=== PATIENT | male | born 1965 | race Caucasian/White ===

== ENCOUNTER 2020-01-30 09:05 | Emergency (ER) | payer BC, OTHER ==
--- NOTE | 2020-01-30 09:59 | EDM.PDOC ---
ED HPI GENERAL MEDICAL PROBLEM - General Chief Complaint: Lower Extremity Injury/Pain Stated Complaint: LEFT FOOT INJURY/ COVID + Time Seen by Provider: 01/30/20 09:19 Source of Information: Reports: Patient History Limitations: Reports: No Limitations - History of Present Illness INITIAL COMMENTS - FREE TEXT/NARRATIVE: The patient presents with left foot pain and swelling. This started yesterday. The patient is COVID 19 positive and found out on . He denies any injury and he actually has been off of work since he got tested. He works at the [employer]. He has swelling and pain to the mid foot. He has no history of gout. This has never happened to him before. He has no fever or chills. He does have a slight cough. He has no chest pain, shortness of breath, abdominal pain, nausea, vomiting or diarrhea. Onset: Gradual Duration: Day(s): Location: Reports: Lower Extremity, Left (foot) Quality: Reports: Sharp Severity: Moderate Improves with: Reports: Immobilization Worsens with: Reports: Movement Context: Denies: Trauma Associated Symptoms: Reports: No Other Symptoms Left Foot Pain Score (Numeric/FACES): 6 - Related Data Allergies Allergy/AdvReac Type Severity Reaction Status Date / Time unknown Allergy Other Uncoded 03/12/15 12:47 Home Meds: Home Meds Hydrocodone/Acetaminophen [Hydrocodone-Acetamin 5-325 mg] 1 - 2 each PO Q6HR PRN #10 tablet 01/30/20 [Rx] predniSONE [Prednisone] 40 mg PO DAILY #10 tablet 01/30/20 [Rx] Past Medical History - Past Health History Medical/Surgical History: Denies Medical/Surgical History Other HEENT History: wears eyeglasses Musculoskeletal History: Reports: Fracture - Infectious Disease History Infectious Disease History: Reports: Novel Coronavirus - Past Surgical History GI Surgical History: Reports: Appendectomy Musculoskeletal Surgical History: Reports: Other (See Below) Other Musculoskeletal Surgeries/Procedures:: left hand surgery Social & Family History - Tobacco Use Smoking Status *Q: Current Some Day Smoker Years of Tobacco use: 40 Packs/Tins Daily: 0 - Caffeine Use Caffeine Use: Reports: Tea - Recreational Drug Use Recreational Drug Use: No Review of Systems - Review of Systems Review Of Systems: See Below Constitutional: Reports: No Symptoms Eyes: Reports: No Symptoms Ears: Reports: No Symptoms Nose: Reports: No Symptoms Mouth/Throat: Reports: No Symptoms Respiratory: Reports: No Symptoms Cardiovascular: Reports: No Symptoms GI/Abdominal: Reports: No Symptoms Genitourinary: Reports: No Symptoms Musculoskeletal: Reports: Other (Left foot swelling and pain) ED EXAM, GENERAL - Physical Exam Exam: See Below Exam Limited By: No Limitations General Appearance: Alert, No Apparent Distress Ears: Normal External Exam Nose: Normal Inspection Head: Atraumatic, Normocephalic Neck: Normal Inspection Respiratory/Chest: No Respiratory Distress, Lungs Clear, Normal Breath Sounds Cardiovascular: Regular Rate, Rhythm, No Edema, No Murmur GI/Abdominal: Soft, Non-Tender, No Organomegaly, No Mass Extremities: Other (Mild edema to the mid foot with pain upon palpation. Good sensation and pulses and capillary refill distally.) Course - Vital Signs Last Recorded V/S: Last Vital Signs Temp 97.0 F 01/30/20 09:15 Pulse 88 01/30/20 12:39 Resp 18 01/30/20 09:15 BP 128/83 01/30/20 12:39 Pulse Ox 98 01/30/20 12:39 - Orders/Labs/Meds Orders: Active Orders 24 hr Category Date Time Status Foot wo Cont Lt [CT] Stat Exams 01/30/20 11:00 Taken Labs: Laboratory Tests 01/30/20 01/30/20 01/30/20 Range/Units 09:46 09:46 09:46 WBC 11.21 H (4.23-9.07) K/mm3 RBC 4.59 L (4.63-6.08) M/mm3 Hgb 13.2 L (13.7-17.5) gm/dl Hct 40.2 (40.1-51.0) % MCV 87.6 (79.0-92.2) fl MCH 28.8 (25.7-32.2) pg MCHC 32.8 (32.2-35.5) g/dl RDW Std Deviation 41.4 (35.1-43.9) fL Plt Count 465 H (163-337) K/mm3 MPV 8.4 L (9.4-12.3) fl Neut % (Auto) 71.5 H (34.0-67.9) % Lymph % (Auto) 17.7 L (21.8-53.1) % Dale % (Auto) 9.1 (5.3-12.2) % Eos % (Auto) 1.1 (0.8-7.0) Baso % (Auto) 0.2 (0.1-1.2) % Neut # (Auto) 8.02 H (1.78-5.38) K/mm3 Lymph # (Auto) 1.98 (1.32-3.57) K/mm3 Dale # (Auto) 1.02 H (0.30-0.82) K/mm3 Eos # (Auto) 0.12 (0.04-0.54) K/mm3 Baso # (Auto) 0.02 (0.01-0.08) K/mm3 Manual Slide Review Abnormal smear ESR 81 H (0-15) mm/hr D-Dimer, Quantitative (0.19-0.50) mg/L Sodium 137 (136-145) mEq/L Potassium 3.8 (3.5-5.1) mEq/L Chloride 100 (98-107) mEq/L Carbon Dioxide 28 (21-32) mEq/L Anion Gap 12.8 (5-15) BUN 13 (7-18) mg/dL Creatinine 1.5 H (0.7-1.3) mg/dL Est Cr Clr Drug Dosing 57.61 mL/min Estimated GFR (MDRD) 49 (>60) mL/min BUN/Creatinine Ratio 8.7 L (14-18) Glucose 116 H (74-106) mg/dL Uric Acid 7.8 H (3.5-7.2) mg/dL Calcium 9.3 (8.5-10.1) mg/dL Total Bilirubin 0.8 (0.2-1.0) mg/dL AST 19 (15-37) U/L ALT 26 (16-63) U/L Alkaline Phosphatase 62 (46-116) U/L C-Reactive Protein 11.3 H* (<1.0) mg/dL Total Protein 8.0 (6.4-8.2) g/dl Albumin 3.4 (3.4-5.0) g/dl Globulin 4.6 gm/dL Albumin/Globulin Ratio 0.7 L (1-2) /20/20 Range/Units 09:46 WBC (4.23-9.07) K/mm3 RBC (4.63-6.08) M/mm3 Hgb (13.7-17.5) gm/dl Hct (40.1-51.0) % MCV (79.0-92.2) fl MCH (25.7-32.2) pg MCHC (32.2-35.5) g/dl RDW Std Deviation (35.1-43.9) fL Plt Count (163-337) K/mm3 MPV (9.4-12.3) fl Neut % (Auto) (34.0-67.9) % Lymph % (Auto) (21.8-53.1) % Dale % (Auto) (5.3-12.2) % Eos % (Auto) (0.8-7.0) Baso % (Auto) (0.1-1.2) % Neut # (Auto) (1.78-5.38) K/mm3 Lymph # (Auto) (1.32-3.57) K/mm3 Dale # (Auto) (0.30-0.82) K/mm3 Eos # (Auto) (0.04-0.54) K/mm3 Baso # (Auto) (0.01-0.08) K/mm3 Manual Slide Review ESR (0-15) mm/hr D-Dimer, Quantitative 0.52 H (0.19-0.50) mg/L Sodium (136-145) mEq/L Potassium (3.5-5.1) mEq/L Chloride (98-107) mEq/L Carbon Dioxide (21-32) mEq/L Anion Gap (5-15) BUN (7-18) mg/dL Creatinine (0.7-1.3) mg/dL Est Cr Clr Drug Dosing mL/min Estimated GFR (MDRD) (>60) mL/min BUN/Creatinine Ratio (14-18) Glucose (74-106) mg/dL Uric Acid (3.5-7.2) mg/dL Calcium (8.5-10.1) mg/dL Total Bilirubin (0.2-1.0) mg/dL AST (15-37) U/L ALT (16-63) U/L Alkaline Phosphatase (46-116) U/L C-Reactive Protein (<1.0) mg/dL Total Protein (6.4-8.2) g/dl Albumin (3.4-5.0) g/dl Globulin gm/dL Albumin/Globulin Ratio (1-2) - Re-Assessments/Exams Free Text/Narrative Re-Assessment/Exam: 01/30/20 09:59 I ordered an x-ray of his foot and labs. 01/30/20 11:11 His WBC was elevated at 11.21. His Hgb was low at 13.2. His D-dimr is elevated slightly at 0.52. His creatinine is elevated at 1.5. His uric acid is slightly elevated at 7.8. His CRP is elevated at 11.3. His foot x-ray shows findings suspicious for fracture within the third cuneiform bone and first cuneiform bone. Foot CT would be confirmatory if clinically needed. Soft tissue swelling. I have ordered a CT of his foot. 01/30/20 13:[address] came back and it appears to be an old injury and there is nothing acute. His uric acid is up. I feel this is a flare of gout. I will get him on some steroids for a few days. Departure - Departure Time of Disposition: 13:15 Disposition: Home, Self-Care 01 Condition: Good Clinical Impression: Gout Qualifiers: Gout site: foot Gout etiology: unspecified cause Chronicity: acute Laterality: left Qualified Code(s): M10.9 - Gout, unspecified - Discharge Information *PRESCRIPTION DRUG MONITORING PROGRAM REVIEWED*: Not Applicable *COPY OF PRESCRIPTION DRUG MONITORING REPORT IN PATIENT CHRISTIAN: Not Applicable Prescriptions: Hydrocodone/Acetaminophen [Hydrocodone-Acetamin 5-325 mg] 1 - 2 each PO Q6HR PRN #10 tablet PRN Reason: Pain predniSONE [Prednisone] 40 mg PO DAILY #10 tablet Referrals: PCP,None [Primary Care Provider] - Miya Dailey NP [Nurse Practitioner] - 1 Week Forms: ED Department Discharge Additional Instructions: Take the prednisone daily for 5 days. Take the hydrocodone as needed for pain. Please return if you are worse. Sepsis Event Note (ED) - Evaluation Sepsis Screening Result: No Definite Risk - Focused Exam Vital Signs: Vital Signs Temp Pulse Resp BP Pulse Ox 01/30/20 12:39 88 128/83 98 01/30/20 10:18 92 119/86 96 01/30/20 09:15 97.0 F 111 H 18 111/91 H 98 - My Orders Last 24 Hours: My Active Orders 01/30/20 11:00 Foot wo Cont Lt [CT] Stat - Assessment/Plan Last 24 Hours: My Active Orders 01/30/20 11:00 Foot wo Cont Lt [CT] Stat
--- NOTE | 2020-01-30 10:45 | CR ---
Left foot: 4 views of left foot were obtained. Comparison: No prior foot exam. 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 Small bony density is noted off the distal corner of the third cuneiform bone possibly due to small chip fracture. Fracture suggested within the first cuneiform bone. Soft tissue swelling is noted. No additional fracture or other abnormality is seen. [place]: 1. Findings suspicious for fractures within the third cuneiform bone and first cuneiform bone. Foot CT would be confirmatory if clinically needed. 2. Soft tissue swelling. Diagnostic code #3 Study was dictated in MDT
[2020-01-30 12:39] VITALS: BP 128/83; PULSE 88
--- NOTE | 2020-01-30 20:05 | CT ---
CT left foot Technique: Multiple axial sections through the left foot were obtained. Reconstructed coronal and sagittal images were obtained. Intravenous contrast not utilized. Findings: Well-corticated bony density is seen off the corner base of the first metatarsal which is believed to represent an old ununited avulsion fracture. Additional calcification is seen between the proximal first and second metatarsals which is felt to represent a normal variant. This is also well corticated and is not acute. Minimal calcification is seen most likely within the cartilage between the calcaneus and navicular bone. Mild joint space narrowing also noted at the tarsal metatarsal joint of the first digit. Impression: 1. Findings of small old ununited fractures and normal variant as noted above. Degenerative change is also noted. 2. No acute fracture is seen as questioned on plain film left foot study performed earlier on the same day (9:24 AM) Diagnostic code #3 Study was dictated in MDT [email or web address]
== END 2020-01-30 13:30 | disposition home or self-care (01) ==
LOC: JD.ED 09:05
DX: M10.9 Gout, unspecified (principal); U07.1 COVID-19; F17.200 Nicotine dependence, unspecified, uncomplicated; D72.829 Elevated white blood cell count, unspecified
CPT/HCPCS: 36415; 73630-26-LT; 73630-LT; 73700-26-LT; 73700-LT; 80053; 84550; 85025; 85379; 85652; 86140; 99283; 99284-25